=== PATIENT | male | born 1970 | race American Indian/Alaskan Native ===

== ENCOUNTER 2017-04-01 16:27 | Emergency (ER) | payer OTHER ==
[2017-04-01 16:35] VITALS: BMI 33.2
[2017-04-01 16:37] VITALS: BP 141/92; PULSE 108; RESP 16; TEMP 97.5; O2SAT 99
--- NOTE | 2017-04-01 16:51 | C.PDOC ---
History Of Present Illness 46 yr old male with PMHx of diabetes and is a [employer] employee, presents to the ER s/p sustaining a injury to the left foot 4th and 5th digit. Patient states he was moving a podium when it slipped and fell, landing on his foot. Reports of pain and swelling to the area. Otherwise denies leg pain, weakness or numbness. Time Seen by Provider: 04/01/17 16:32 Chief Complaint (Nursing): Lower Extremity Problem/Injury History Per: Patient History/Exam Limitations: no limitations Onset/Duration Of Symptoms: Sudden Onset ([employer]) Current Symptoms Are (Timing): Still Present Past Medical History Reviewed: Historical Data, Nursing Documentation, Vital Signs Vital Signs: Last Vital Signs Temp 97.5 F L 04/01/17 16:36 Pulse 108 H 04/01/17 16:36 Resp 16 04/01/17 16:36 BP 141/92 H 04/01/17 16:36 Pulse Ox 99 04/01/17 17:15 - Medical History PMH: HTN Family History: States: No Known Family Hx - Social History Hx Alcohol Use: No Hx Substance Use: No - Immunization History Hx Tetanus Toxoid Vaccination: No Hx Influenza Vaccination: No Hx Pneumococcal Vaccination: No Review Of Systems Except As Marked, All Systems Reviewed And Found Negative. Musculoskeletal: Positive for: Foot Pain (Left foot, 4th and 5th digit). Negative for: Leg Pain Neurological: Negative for: Weakness, Numbness Physical Exam - Physical Exam Appears: Non-toxic, No Acute Distress Skin: Warm, Dry, No Rash Head: Atraumatic, Normacephalic Extremity: Normal ROM, Other ((+) Left Foot, 4th & 5th digit - Redness and swelling. Tender to palpation.) Neurological/Psych: Oriented x3, Normal Speech, Normal Motor ED Course And Treatment O2 Sat by Pulse Oximetry: 99 (RA) Pulse Ox Interpretation: Normal - Other Rad X-Ray - Left Foot X-Ray: Viewed By Me, Read By Radiologist Interpretation: PROCEDURE: Left Foot Radiographs. HISTORY: trauma. COMPARISON: None available. FINDINGS: BONES: No acute displaced fracture. JOINTS: No dislocation. SOFT TISSUES: Soft tissue swelling. No evidence of radiopaque foreign body. OTHER FINDINGS: None. IMPRESSION: Soft tissue swelling. No acute displaced fracture, dislocation, or significant joint effusion identified. If symptoms persist, or if there is continued clinical concern, x-ray follow-up in 7-10 days should be considered. Medical Decision Making Medical Decision Making: PLAN: * X-Ray - Left Foot * Motrin PO Disposition Counseled Patient/Family Regarding: Studies Performed, Diagnosis, Need For Followup, Rx Given - Disposition Referrals: Vijay Garcia III, MD [Staff Provider] - Disposition: HOME/ ROUTINE Disposition Time: 17:13 Condition: STABLE Prescriptions: Ibuprofen [Motrin] 600 mg PO TID #15 tab Instructions: Contusion in Adults (ED) Forms: General Discharge Instructions, [employer] (Faroese), Work Excuse - POA Present On Arrival: None - Clinical Impression Clinical Impression: Contusion of foot, left - Scribe Statement The provider has reviewed the documentation as recorded by the Terranceiboswald Hemphill Provider Attestation: All medical record entries made by the Terranceiboswald were at my direction and personally dictated by me. I have reviewed the chart and agree that the record accurately reflects my personal performance of the history, physical exam, medical decision making, and the department course for this patient. I have also personally directed, reviewed, and agree with the discharge instructions and disposition.
--- NOTE | 2017-04-01 17:13 | RAD ---
PROCEDURE: Left Foot Radiographs. HISTORY: trauma COMPARISON: None available. FINDINGS: BONES: No acute displaced fracture. JOINTS: No dislocation. SOFT TISSUES: Soft tissue swelling. No evidence of radiopaque foreign body. OTHER FINDINGS: None. IMPRESSION: Soft tissue swelling. No acute displaced fracture, dislocation, or significant joint effusion identified. If symptoms persist, or if there is continued clinical concern, x-ray follow-up in 7-10 days should be considered.
== END 2017-04-01 17:41 | disposition home or self-care (01) ==
LOC: C.ER 16:27
DX: S90.32XA Contusion of left foot, initial encounter (principal); W01.0XXA Fall on same level from slipping, tripping and stumbling without subsequent striking against object, initial encounter; E11.9 Type 2 diabetes mellitus without complications; I10 Essential (primary) hypertension

== ENCOUNTER 2018-03-25 20:31 | Emergency (ER) | payer OTHER ==
[2018-03-25 20:31] VITALS: BMI 33.2
[2018-03-25 21:17] LABS: BASO # 0.1 K/uL (0.0-0.2); EOS % 0.6 % (0.0-4.0); LYMPH # 1.7 K/uL (1.0-4.3); MEAN CELL VOLUME 78.9 fL (80.0-94.0); MEAN CORPUSCULAR HEMOGLOBIN 26.7 pg (27.0-31.0); MEAN CORPUSCULAR HGB CONC 33.9 g/dL (33.0-37.0); MEAN PLATELET VOLUME 8.2 fL (7.2-11.7); MONO # 0.4 K/uL (0.0-0.8); MONO % 5.4 % (0.0-10.0); NEUT # 4.5 K/uL (1.8-7.0); RBC 5.24 Mil/uL (4.40-5.90); RED CELL DISTRIBUTION WIDTH 14.8 % (11.5-14.5); WHITE BLOOD COUNT 6.6 K/uL (4.8-10.8)
--- NOTE | 2018-03-25 21:32 | C.PDOC ---
History Of Present Illness 47 year old male presents to the ED for evaluation of intermittent chest pain which began around 2 days ago. Patient describes his pain as a sharp, stabbing sensation that lasts for around 30 seconds and then self-resolves. Patient notes he was on a cruise ship last week and returned yesterday, and admits to eating a lot of unhealthy foods. He denies any alcohol intake. Patient returned to work today ([employer] employee), and would like to be evaluated. Patient was noted to have blood pressure of 115/102 and heart rate of 117 upon initial examination. Patient denies chest pain or shortness of breath at this time. He has PMHx of HT N and DM and is compliant with his medication. Time Seen by Provider: 03/25/18 20:52 Chief Complaint (Nursing): Palpitations History Per: Patient History/Exam Limitations: no limitations Onset/Duration Of Symptoms: Intermittent Episodes Current Symptoms Are (Timing): Gone Quality: Sharp, "Pain", Other (stabbing ) Additional History Per: Patient Past Medical History Reviewed: Historical Data, Nursing Documentation, Vital Signs Vital Signs: Last Vital Signs Temp 98.3 F 03/25/18 20:35 Pulse 106 H 03/25/18 21:10 Resp 22 03/25/18 20:35 BP 115/102 H 03/25/18 20:35 Pulse Ox 99 03/25/18 20:35 - Medical History PMH: HTN Surgical History: No Surg Hx Family History: States: Unknown Family Hx - Social History Hx Alcohol Use: No Hx Substance Use: No - Immunization History Hx Tetanus Toxoid Vaccination: No Hx Influenza Vaccination: No Hx Pneumococcal Vaccination: No Review Of Systems Constitutional: Negative for: Fever, Chills Cardiovascular: Positive for: Chest Pain Physical Exam - Physical Exam Appears: Non-toxic, No Acute Distress Skin: Normal Color, Warm, Dry Head: Atraumatic, Normacephalic Eye(s): bilateral: Normal Inspection Oral Mucosa: Moist Neck: Supple Chest: Symmetrical, No Deformity, No Tenderness Cardiovascular: Rhythm Regular, No Murmur Respiratory: Normal Breath Sounds, No Rales, No Rhonchi, No Wheezing Extremity: Normal ROM, Capillary Refill (less than 2 seconds ) Neurological/Psych: Oriented x3, Normal Speech, Normal Cognition ED Course And Treatment - Laboratory Results Result Diagrams: 03/25/18 21:10 03/25/18 21:10 Lab Interpretation: Abnormal (Glucose 354) O2 Sat by Pulse Oximetry: 99 (on RA) Pulse Ox Interpretation: Normal Progress Note: Bloodwork and EKG ordered and reviewed. Patient now with blood pressure of 138/82. Reevaluation Time: 22:54 Reassessment Condition: Improved (patient treated with IV fluids in ED. BP decreased spontaneously 121/77) Disposition Counseled Patient/Family Regarding: Studies Performed, Diagnosis, Need For Followup - Disposition Referrals: Jorge Boyle MD [Medical Doctor] - Disposition: HOME/ ROUTINE Disposition Time: 22:57 Condition: IMPROVED Instructions: High Blood Pressure (DC), Type 2 Diabetes Forms: [employer] (Bulgarian) - Clinical Impression Clinical Impression: Hypertension, Diabetes - Scribe Statement The provider has reviewed the documentation as recorded by the Scribe (Nancy Wellington) Provider Attestation: All medical record entries made by the Scribe were at my direction and personally dictated by me. I have reviewed the chart and agree that the record accurately reflects my personal performance of the history, physical exam, medical decision making, and the department course for this patient. I have also personally directed, reviewed, and agree with the discharge instructions and disposition.
[2018-03-25 21:33] LABS: ALB/GLOB RATIO 1.3 (1.0-2.1); ALBUMIN 4.4 g/dL (3.5-5.0); ALT/SGPT 30 U/L (21-72); AST/SGOT 22 U/L (17-59); BLOOD UREA NITROGEN 12 mg/dL (9-20); CALCIUM 9.2 mg/dl (8.6-10.4); GFR NON-AFRICAN AMERICAN > 60
[2018-03-25 21:43] LABS: B-TYPE NATRIURETIC PEPTIDE 12.1 pg/mL (0-450)
[2018-03-25] MEDS ORDERED: Sodium Chloride 0.9% 1,000 ML IV ONE (22:00)
[2018-03-25 22:29] VITALS: RESP 20
[2018-03-25 23:25] VITALS: BP 115/74; PULSE 94; TEMP 98.2; O2SAT 97
--- NOTE | 2018-03-26 10:48 | CARD ---
APPROVED REPORT Date of service: 03/25/2018 EKG Measurement Heart [id number] MD 130P40 [id number] <Conclusion> Sinus tachycardia Otherwise normal ECG
== END 2018-03-25 23:25 | disposition home or self-care (01) ==
LOC: C.ER 20:31
DX: I10 Essential (primary) hypertension (principal); E11.9 Type 2 diabetes mellitus without complications
CPT/HCPCS: 80053; 83880; 84484; 85025; 93005; 96360; 99284; J7030